=== PATIENT | male | born 1975 | race Caucasian/White ===

== ENCOUNTER 2019-01-29 08:25 | Day surgery (SDC) | payer BC, OTHER ==
[~2019-01-29] VITALS: Ht 172.7 cm; Wt 90.7 kg
[~2019-01-29 08:25] MED LIST: HYDROCODON-ACE1 EA10 PO; NORVASC5 MG PO
[2019-01-29 08:51] LABS: MCH 31.9 pg (26.0-34.0); MCV 93.6 fL (80.0-100.0); RBC 5.02 10x6/uL (4.20-6.10); WBC 6.5 10x3/uL (4.8-10.8)
[2019-01-29 09:40] VITALS: BP 148/88; Ht 172.7 cm; Wt 90.7 kg
--- NOTE | 2019-01-29 15:05 | NUR ---
NO NUMBNESS OR TINGLING REPORTED , EQUAL STRENGHTS IN LOWER EXTREMETIES
--- NOTE | 2019-01-29 16:00 | NUR ---
1520-AMBULATED TO RESTROOM AND URINATED WITHOUT COMPLICATIONS.
--- NOTE | 2019-01-29 16:31 | NUR ---
1611-REPORTS PAIN 5/10 TO SURGICAL INCISION. ADMINISTERED TYLENOL WITH CODEINE #3 PER MD ORDERS. VSS.
--- NOTE | 2019-01-29 16:35 | NUR ---
1435-DISCHARGE CRITERIA MET. REPORTS PAIN IS SUBSIDING. RATES 06/22. REVIEWED POST OPERATIVE INSTRUCTIONS.VERBALIZED UNDERSTANDING. ESCORTED OUT VIA W/C WITH SPOUSE DRIVING HOME.
--- NOTE | 2019-02-03 20:19 | OP ---
PATIENT NAME: ANTHONY LUNA MEDICAL RECORD: [id number] :71 LOCATION:[facility] ADMISSION DATE: SURGEON: WILFRIDO CAMACHO MD DATE OF OPERATION: 01/29/2019 PREOPERATIVE DIAGNOSIS: Disc herniation left L4-L5 with left L5 radiculopathy. POSTOPERATIVE DIAGNOSIS: Disc herniation left L4-L5 with left L5 radiculopathy. PROCEDURES: Lumbar laminotomy, medial facetectomy and foraminotomy L4-L5 on the left with METRx retractor and discectomy L4-L5, left. SURGEON: Wilfrido Camacho MD DESCRIPTION AND TECHNIQUE: After induction of general endotracheal anesthesia, the patient was rolled prone on a Meño frame. Lumbar spine was prepped and draped in the usual sterile fashion. Fluoroscopic x-ray and spinal needle localized at the L4-L5 interspace on the left side. Flow was confirmed with fluoroscopic x-ray. After infiltration of 1:100,000 epinephrine and 1% lidocaine, a stab incision was created with a #11 blade and series of dilators were used to advance a tubular METRx retractor to the L4-L5 interspace on the left side. Level was confirmed with fluoroscopic x-ray. A microscope and Midas Esteban drill were used to perform laminotomy, medial facetectomy, and foraminotomy at L4-5 on the left. Hypertrophied ligamentum flavum was removed with Cloward rongeurs. Following this, there was an obvious disc herniation compressing the left L5 nerve root within the axilla. This was removed in a piecemeal fashion from the spinal canal. Additional material was moved from the disc space. Following this, L5 nerve root and L4 nerve roots were decompressed well. Meticulous hemostasis was maintained throughout the wound. Wound was irrigated with copious amounts of Ancef irrigant solution. The retractor was removed. The fascia was closed with 2-0 Vicryl suture, the subdermal layer was closed with 3-0 Vicryl suture. The skin was closed with Prineo dressing. All counts were reported as correct. Estimated blood loss was minimal. TRANSINT:[id number] Voice Confirmation ID: [id number] DOCUMENT ID: [id number] WILFRIDO CAMACHO MD at 2019 CC: [id number] DICTATION DATE: 01/29/19 7897 CARD BRUSHER: 01/29/19 2338 [facility] SD[facility] 01/29/19 [facility] [address] [place] [address]
== END 2019-01-29 16:35 | disposition home or self-care (01) ==
LOC: D.OPS 08:25 → D.PAN 11:00 → D.OPS 16:35
PROVIDERS: Anesthesiology; ATTEND Neurological Surgery
DX: M51.16 Intervertebral disc disorders with radiculopathy, lumbar region (principal)

== ENCOUNTER 2019-06-15 16:07 | Inpatient (IN) | payer BC ==
[~2019-06-15] VITALS: Ht 172.7 cm; Wt 90.9 kg
--- NOTE | ~2019-06-15 | OP ---
PATIENT NAME: ANTHONY LUNA MEDICAL RECORD: [id number] :71 LOCATION:[id number] ADMISSION DATE:06/18/19 SURGEON: WILFRIDO CAMACHO MD DATE OF OPERATION: 06/18/2019 PREOPERATIVE DIAGNOSES: Severe degenerative disc disease at L4-L5 with segmental instability, L4-L5. Positive discogram at L4-L5 with concordant pain. Lumbar spinal stenosis and severe foraminal stenosis at L4-L5 bilaterally, recurrent disc herniation at L4-L5. PROCEDURE: Transforaminal lumbar interbody fusion at L4-L5 with [employer] medical pedicle screws and a PEEK interbody cage, Malena bone allograft with bone stem cells. SURGEON: Wilfrido Camacho MD DESCRIPTION AND TECHNIQUE: After induction of general endotracheal anesthesia, the patient was rolled prone on chest and hip rolls. The lumbar spine was prepped and draped in usual sterile fashion. Fluoroscopic x-ray and a spinal needle localized the L4-L5 interspace. Following this, after infiltration of 1:100,000 epinephrine with 1% lidocaine. A stab incision was created with a #11 blade and series of dilators were used to advance a 26-mm tube to the L4-L5 interspace. This was confirmed with fluoroscopic x-ray. A Midas Esteban drill was used to extend the previous laminectomy. Hypertrophied ligamentum flavum was removed with Cloward rongeurs as well as scar tissue. The L4-L5 interspace was identified with fluoroscopic x-ray and a spinal needle. The disc material was removed from the disc space with a combination of pituitary rongeurs and curettes. The disc material was completely removed from the disc space. The bony endplates were prepared with curettes. Next, a PEEK interbody cage was placed in the disc space under distraction. Prior to this, the disc space was filled with Malena bone allograft as well as the inner portions of the cage. The tubular retractor was removed. A Jamshidi needle was used to cannulate the pedicles at L4 and L5 on both sides with K-wires, cannulated screws were advanced over the K-wires in all 4 pedicles. Following this, the rods were loaded into the top loading portion of the screw heads, locking nuts were placed over the rods under compression. Following this, a good position was maintained of the hardware under fluoroscopic x-ray. Meticulous hemostasis was maintained throughout the wound. Wound was irrigated with copious amounts of Ancef irrigant solution. The fascia was closed with 2-0 Vicryl suture, the subdermal layer was closed with 3-0 Vicryl suture. The skin was closed with sera. A sterile dressing was applied to the wound. The patient was awakened in good condition and taken to recovery. All counts were reported as correct. Estimated blood loss was minimal. TRANSINT:[id number] Voice Confirmation ID: [id number] DOCUMENT ID: [id number] WILFRIDO CAMACHO MD CC: [id number] DICTATION DATE: 06/30/19801 DIGITAL PRODUCTION OPERATOR: 06/30/19 0919 DIS IN 06/20/19 [place] [id number] [place] [id number]
[2019-06-16] MEDS ORDERED: ZANAFLEX4 MG PO (14:06)
[2019-06-16 14:45] LABS: HEMATOCRIT 45.2 % (42.0-54.0); HEMOGLOBIN 15.3 g/dL (13.5-17.5); MCH 30.5 pg (26.0-34.0); MCHC 33.8 g/dL (31.0-37.0); MEAN PLATELET VOLUME 10.6 fL (7.4-10.4); RBC 5.02 10x6/uL (4.20-6.10); RDW 13.3 % (11.5-14.5); WBC 5.9 10x3/uL (4.8-10.8)
[2019-06-18] VITALS (15 sets, daily range): BP systolic 121–150; BP diastolic 54–97; BMI 30.4
--- NOTE | 2019-06-18 11:40 | NUR ---
PATIENT ARRIVED TO UNIT FROM OR RECOVERY. A/O X4. C/O INCISIONAL PAIN AT THE LOWER BACK. SUGRICAL DRESSING IS CDI. DENIES NUMBNESS/TINGLING TO ARMS AND LEGS. SENSATIONS INTACT. GUADARRAMA CATHETER IN PLACE. MONITORING EQUIPMENT ON AND FUNCTIONING PROPERLY. VSS. WILL CONTINUE TO MONITOR.
--- NOTE | 2019-06-18 16:25 | NUR ---
PATIENT RESTING WITH EYES CLOSE. AWAKENS EASILY TO VERBAL STIMULI. PAIN RATED 4/10 ON PAIN SCALE. DENIES NEEDS AT THIS TIME. BED IN LOW POSITION AND CALL LIGHT WITH REACH.
--- NOTE | 2019-06-18 19:00 | NUR ---
PATIENT RESTING IN BED WITH NO NEEDS AT THIS TIME ALERT AND ORENTED WITH IV AND INBOUND SALES CONSULTANT PUMP INTACT. CALL LIGHT AND WATER IN REACH.
--- NOTE | 2019-06-18 20:01 | NUR ---
PATIENT IN BED RESTING ALERT AND ORENTED ABLE TO VOICE NEEDS AND WANTS TO STAFF. IV IN PLACE AND PATEN TO LEFT HAND WITH NS AT 50ML/HR IN PLACE. REMAINS ON BEDREST.O2 AT 2L VIA N/C.
--- NOTE | 2019-06-18 22:02 | NUR ---
ZOFRAN GIVEN AT 2050 FOR N/V, EMMISES CLEAR . OCCURED AFTER PATINT WAS ROLING FOR ASSMENT OF DRESSING TO LOW BACK. DRESSING WAS INTACT WITH SOME BLOOD NOTED UNDER DRESSING BUT DRY ON OUTSIDE OF DRESSING. PATIENT ASSITED TO CLEAN UP AND RESTING.
--- NOTE | 2019-06-18 23:55 | NUR ---
RESTING IN BED SLEEPING AWAKES WHEN YOU ENTER ROOM NO NEEDS AT THIS TIME.
[2019-06-19] VITALS (11 sets, daily range): BP systolic 128–155; BP diastolic 79–105; Ht 172.7 cm; Wt 90.9 kg
--- NOTE | 2019-06-19 02:15 | NUR ---
SLEEPING IV INTACT F/C IN PLACE AND PATEN NO NEEDS AT THIS TIME.
--- NOTE | 2019-06-19 04:14 | NUR ---
AWAKEN WHEN STAFF LOOKED INTO ROOM. STATED NO NEEDS.
--- NOTE | 2019-06-19 05:22 | NUR ---
RESTING IN BED WITH NO NEEDS GAVE JELLO FOR SNACK PER REQUIST. NO NEEDS
--- NOTE | 2019-06-19 07:00 | NUR ---
REPORT RECEIVED FROM THE OFF GOING RN. SEE ASSESSMENT IN THE PTS FLOW SHEET. VSS. DRESSIG TO BACK C/D/I. PT DENIES PAIN AT THIS TIME. STEEL HEATER BUTTON IN REACH. CALL LIGHT IN REACH. WILL CONT POC.
--- NOTE | 2019-06-19 09:00 | NUR ---
CLEAR LIQUID DIET PROVIDED FOR THE PT. PT COMITED ABOUT 50CC IN EMESIS BAG. PT STATED "THE CHICKEN BROTH DIDN'T AGREE WITH ME." OFFERED SOME ZOFRAN AND PT REFUSED. "IM NOT SICK ANYMORE".
--- NOTE | 2019-06-19 09:00 | NUR ---
DR YOUSSEF AT THE PTS BEDSIDE. OK TO TRANSFER TO THE FLOOR.
--- NOTE | 2019-06-19 11:41 | NUR ---
DRESSING TO LOWER BACK CHANGED. KENN AND INCISION NOTED AND WELL APPROXIMATED. NO S/SX OF INFECTION NOTED. PT TRANSFERED TO 2221. REPORT CALLED TO [facility] [place]. VSS. NO S/SX OF DISTRESS/DISCOMFORT NOTED.
--- NOTE | 2019-06-19 12:35 | NUR ---
TOLERATING REGULAR DIET. HE IS WITHOUT DISTRESS.CALL LIGHT IN REACH
--- NOTE | 2019-06-19 16:03 | NUR ---
FAMILY HAS BEEN TO VISIT. PATIENT REMAINS WITHOUT NEEDS. STILL WAITING ON TLSO BRACE
[2019-06-20] VITALS: BP 154/84
[2019-06-20 04:00] VITALS: BP 124/46
[2019-06-20 07:58] VITALS: BP 135/77
--- NOTE | 2019-06-20 08:50 | NUR ---
PT RESTING IN BED WITH HOB ELEVATED 30 DEGREES. RESP EVEN AND UNLABORED. PT REPORTS PAIN 4/10 AT THIS TIME. IV TO LEFT HAND WITH 1/2 NS @ 50 ML/HR INFUSING VIA PUMP WITH MORPHINE OCCASIONAL CAREGIVER INTACT. DRESSING C/D/I TO BACK. DENIES FURTHER NEEDS AT THIS TIME. SIGNIFICANT OTHER AT BEDSIDE. CL WITHIN REACH. ENCOURAGED TO CALL WITH NEEDS. CONTINUE POC
--- NOTE | 2019-06-20 10:30 | NUR ---
PT RESTING QUIETLY IN BED. RESP EVEN AND UNLABORED. DENIES NEEDS AT THIS TIME. CL WITHIN REACH. ENCOURAGED TO CALL WITH NEEDS.
[2019-06-20 12:24] VITALS: BP 134/80
[2019-06-20] MEDS ORDERED: HYDROCODON-ACE1 EA10 PO (12:56)
--- NOTE | 2019-06-24 06:52 | MORECARE ---
CASE MANAGEMENT DISCHARGE SUMMARY PATIENT: ANTHONY LUNA UNIT: [id number] ADM DATE: 06/18/19 AGE: 43 : 71 SEX: M ROOM/BED: D.2222 AUTHOR: MATTHEW PENN PHYSICIAN: REFERRING PHYSICIAN: WILFRIDO YOUSSEF MD DATE OF SERVICE: 06/24/19 Discharge Plan Patient Name: ANTHONY LUNA [facility] [facility] 1975 Planned Disposition: Anticipated Discharge Date: Discharge Date: 06/20/2019 Expected LOS: 0 Initial Reviewer: [email or web address] Initial Review Date: 06/24/2019 Generated: 06/24/19 7:52 am Patient Name: ANTHONY LUNA Page [phone] at 0652 All edits/amendments must be made on the electronic document DICTATION DATE: 06/24/19651 WRINKLE CHASER: OLIVER 06/24/19 0652 RPT#: [id number] DC DATE:06/20/19 STATUS: DIS IN [facility] [address] [place] [address] END OF REPORT
== END 2019-06-20 14:51 | disposition home or self-care (01) | DRG 460 ==
LOC: D.SDCHOLD 06-18 05:40 → D.ICU 06-18 05:40 → D.MS 06-18 05:40 → D.SDCHOLD 06-18 07:30 → D.ICU 06-18 11:15 → D.MS 06-19 11:42
PROVIDERS: Anesthesiology; ADMIT Neurological Surgery; ATTEND Neurological Surgery
PROC: 0SG00AJ Fusion of Lumbar Vertebral Joint with Interbody Fusion Device, Posterior Approach, Anterior Column, Open Approach (ICD-10-PCS; principal; 2019-06-18 07:30)
DX: M54.16 Radiculopathy, lumbar region (principal); E78.5 Hyperlipidemia, unspecified; I10 Essential (primary) hypertension